=== PATIENT | female | born 1965 | race Caucasian/White ===

== ENCOUNTER 2016-11-13 08:44 | Emergency (ER) | payer OTHER ==
[~2016-11-13] VITALS: Ht 162.6 cm; Wt 67.9 kg
[~2016-11-13 08:44] MED LIST: ATARAX,VISTARIL25 MG PO; BUPROPION HCL150 M2 PO; FLEXERIL10 MG PO; HYDROXYZINE PAM25 MG PO; KEFLEX500 MG PO; MOTRIN800 MG PO; NOHOMEMEDS; OXAYDO5 MG PO; PAIN RELIEF650 MG PO; PANTOPRAZOLE SO40 MG PO; RISPERDAL0.25 MG PO; RISPERIDONE0.25 MG PO; ULTRAM50 MG PO; VENTOLIN HFA18 GM IH; WELLBUTRIN SR100 MG PO
[2016-11-13 11:31] LABS: EOSINOPHIL (%) 0.3 % (0-5); HEMATOCRIT 35.3 % (36.0-46.0); IMMATURE GRANULOCYTE (%) 0.6 % (0.0-0.7); IMMATURE GRANULOCYTE COUNT 0.1 K/uL; INSTRUMENT ABS NEUTROPHIL CT 6.3 K/uL; LYMPHOCYTE COUNT 1.4 K/uL (1.0-2.8); MCH 33.1 PG (29.0-34.0); MCHC 33.7 G/DL (30.0-36.0); MCV 98.3 FL (83-99); MEAN PLAT.VOLUME 11.3 uM^3 (9.5-12.4); MONOCYTE (%) 13.9 % (3-12); MONOCYTE COUNT 1.3 K/uL (0-0.8); NEUTROPHIL (%) 69.3 % (45-76); NEUTROPHIL COUNT 6.3 K/uL (1.8-6.4); PLATELET COUNT 58 K/uL (156-360); RBC DIS.WIDTH-CV 13.8 % (11.8-14.6); RED BLOOD COUNT 3.59 M/uL (3.80-5.20); WHITE BLOOD COUNT 9.1 K/uL (4.1-10.2)
[2016-11-13 14:40] LABS: CHLORIDE 104 mEq/L (99-109); POTASSIUM 3.3 mEq/L (3.7-5.4); SODIUM 133 mEq/L (136-147)
[2016-11-13 14:42] LABS: GLUCOSE 85 mg/dL (70-99)
[2016-11-13 14:44] LABS: ANION GAP 8 MEQ/L (2-14)
[2016-11-13 14:46] LABS: GFR ESTIMATE (CALCULATED) > 59 mL/min/
[2016-11-13 14:47] LABS: UREA NITROGEN (BUN) 18 mg/dL (9-23)
[2016-11-13] MEDS ORDERED: KEFLEX500 MG PO (16:26)
[2016-11-13] MEDS ORDERED: BACTRIM,SEPT1 TABLET PO (16:26)
[2016-11-13 17:05] VITALS: BP 122/66
== END 2016-11-13 17:05 | disposition home or self-care (01) ==
LOC: EME 08:44
PROVIDERS: Emergency Medicine
DX: L03.317 Cellulitis of buttock (principal); Z88.6 Allergy status to analgesic agent; F17.200 Nicotine dependence, unspecified, uncomplicated
CPT/HCPCS: 72193; 80048; 85025; 99281; 99285; J0690; J7050; J7120

== ENCOUNTER 2017-06-12 17:59 | Emergency (ER) | payer OTHER ==
[~2017-06-12] VITALS: Ht 175.3 cm; Wt 65.3 kg
[~2017-06-12 17:59] MED LIST changes: +BACTRIM,SEPT1 TABLET PO
[2017-06-12 18:50] LABS: HEMATOCRIT 39.6 % (36.0-46.0); HEMOGLOBIN 13.8 G/DL (11.9-15.5); MCH 33.6 PG (29.0-34.0); MCHC 34.8 G/DL (30.0-36.0); MCV 96.4 FL (83-99); RBC DIS.WIDTH-CV 12.9 % (11.8-14.6); RBC DIS.WIDTH-SD 45.9 % (39-53); RED BLOOD COUNT 4.11 M/uL (3.80-5.20); WHITE BLOOD COUNT 3.6 K/uL (4.1-10.2)
[2017-06-12 18:58] LABS: ALBUMIN 4.2 g/dL (3.2-4.8)
[2017-06-12 18:59] LABS: CHLORIDE 101 mEq/L (99-109); SODIUM 135 mEq/L (136-147)
[2017-06-12 19:01] LABS: GLUCOSE 96 mg/dL (70-99); TOTAL PROTEIN 8.2 g/dL (6.4-8.3)
[2017-06-12 19:03] LABS: TOTAL BILIRUBIN 0.9 mg/dL (0.0-1.0)
[2017-06-12 19:04] LABS: ALKALINE PHOSPHATASE 102 IU/L (3-129); SERUM ETHYL ALCOHOL 115 mg/dL
[2017-06-12 19:05] LABS: CREATININE 0.9 mg/dL (0.6-1.3); GFR ESTIMATE (CALCULATED) > 59 mL/min/
[2017-06-12 19:06] LABS: AST (GOT) 291 IU/L (2-34); UREA NITROGEN (BUN) 10 mg/dL (9-23)
[2017-06-12 19:08] LABS: ALT (GPT) 407 IU/L (3-49)
[2017-06-12 19:28] LABS: AMPHETAMINE NEGATIVE (500 ng/mL); BARBITURATES NEGATIVE (200 ng/mL); BENZODIAZEPINES NEGATIVE (150 ng/mL); BUPRENORPHINE NEGATIVE (10 ng/mL); COCAINE NEGATIVE (150 ng/mL); METHADONE NEGATIVE (200 ng/mL); METHAMPHETAMINE NEGATIVE (500 ng/mL); OPIATES (MORPHINE) NEGATIVE (100 ng/mL); OXYCODONE NEGATIVE (100 ng/mL); PHENCYCLIDINE NEGATIVE (25 ng/mL); PROPOXYPHENE NEGATIVE (300 ng/mL); THC CANNABINOIDS NEGATIVE (50 ng/mL); TRICYCLIC ANTIDEPRESSANTS NEGATIVE (300 ng/mL)
[2017-06-12 19:31] LABS: IMM.PLATELET FRACTION 7.1 (1-7); PLAT.SUFFICIENCY DECREASED; PLATELET COUNT 47 K/uL (156-360)
[2017-06-12 20:57] VITALS: BP 130/92
== END 2017-06-12 20:57 | disposition home or self-care (01) ==
LOC: EME 17:59
PROVIDERS: Nurse Practitioner Family
DX: D69.6 Thrombocytopenia, unspecified (principal); F10.129 Alcohol abuse with intoxication, unspecified; I10 Essential (primary) hypertension; J44.9 Chronic obstructive pulmonary disease, unspecified; B19.20 Unspecified viral hepatitis C without hepatic coma; F41.9 Anxiety disorder, unspecified; F32.9 Major depressive disorder, single episode, unspecified; F17.200 Nicotine dependence, unspecified, uncomplicated; W19.XXXA Unspecified fall, initial encounter; Y90.5 Blood alcohol level of 100-119 mg/100 ml
CPT/HCPCS: 70450; 80053; 82140; 85027; 93005; 99281; 99285; G0480

== ENCOUNTER 2017-06-14 15:22 | Emergency (ER) | payer OTHER ==
[~2017-06-14] VITALS: Ht 154.9 cm; Wt 66.5 kg
[2017-06-14 17:21] LABS: BASOPHIL (%) 0.7 % (0-1); EOSINOPHIL (%) 0.7 % (0-5); HEMATOCRIT 41.5 % (36.0-46.0); HEMOGLOBIN 14.3 G/DL (11.9-15.5); IMMATURE GRANULOCYTE (%) 0.5 % (0.0-0.7); LYMPHOCYTE (%) 22.9 % (15-42); LYMPHOCYTE COUNT 1.3 K/uL (1.0-2.8); MCH 33.2 PG (29.0-34.0); MCHC 34.5 G/DL (30.0-36.0); MCV 96.3 FL (83-99); MONOCYTE (%) 14.3 % (3-12); MONOCYTE COUNT 0.8 K/uL (0-0.8); NEUTROPHIL (%) 60.9 % (45-76); NEUTROPHIL COUNT 3.3 K/uL (1.8-6.4); RBC DIS.WIDTH-CV 12.5 % (11.8-14.6); RBC DIS.WIDTH-SD 45.3 % (39-53); RED BLOOD COUNT 4.31 M/uL (3.80-5.20); WHITE BLOOD COUNT 5.5 K/uL (4.1-10.2)
[2017-06-14 17:30] LABS: ALBUMIN 4.4 g/dL (3.2-4.8); CHLORIDE 98 mEq/L (99-109); POTASSIUM 4.5 mEq/L (3.7-5.4); SODIUM 131 mEq/L (136-147)
[2017-06-14 17:32] LABS: GLUCOSE 116 mg/dL (70-99); TOTAL PROTEIN 8.6 g/dL (6.4-8.3)
[2017-06-14 17:35] LABS: SERUM ETHYL ALCOHOL < 10 mg/dL
[2017-06-14 17:36] LABS: ALKALINE PHOSPHATASE 107 IU/L (3-129); GFR ESTIMATE (CALCULATED) > 59 mL/min/; PLATELET COUNT 65 K/uL (156-360)
[2017-06-14 17:37] LABS: UREA NITROGEN (BUN) 20 mg/dL (9-23)
[2017-06-14 17:38] LABS: AST (GOT) 231 IU/L (2-34)
[2017-06-14 17:39] LABS: ALT (GPT) 344 IU/L (3-49); TOTAL BILIRUBIN 1.9 mg/dL (0.0-1.0)
[2017-06-14 18:17] LABS: TROP-I INTERPRETATION NEGATIVE; TROPONIN-I 0.01 ng/mL (0.0-0.30)
[2017-06-14] MEDS ORDERED: ANTIVERT25 MG PO (19:07)
[2017-06-14 19:30] VITALS: BP 124/61
[2017-06-15 14:48] LABS: STOOL OCCULT BLD 1ST SPECIMEN NEGATIVE
== END 2017-06-14 19:30 | disposition home or self-care (01) ==
LOC: EME 15:22
PROVIDERS: Physician Assistant
DX: R42 Dizziness and giddiness (principal); J44.9 Chronic obstructive pulmonary disease, unspecified; I10 Essential (primary) hypertension; B19.20 Unspecified viral hepatitis C without hepatic coma; F41.9 Anxiety disorder, unspecified; F32.9 Major depressive disorder, single episode, unspecified; F17.200 Nicotine dependence, unspecified, uncomplicated; Z88.8 Allergy status to other drugs, medicaments and biological substances
CPT/HCPCS: 80053; 82272; 84484; 85025; 93005; 99281; 99283; G0480